=== PATIENT | female | born 1955 | race Caucasian/White ===

== ENCOUNTER 2024-02-24 14:16 | Emergency (ER) | payer OTHER, SELFPAY ==
[2024-02-24 14:17] VITALS: BP 123/51; BMI 39.4
--- NOTE | 2024-02-24 14:50 | ED.GENMED ---
History of Present Illness
General
Chief Complaint: DVT/Possible Blood Clot
Time Seen by Provider: 02/24/24 14:27
History of Present Illness
History of Present Illness:
Patient is a 69-year-old female with a history of DVT on Eliquis who presents with right lower extremity pain. Pain is predominantly around the right knee but she states that shoots down the entire leg. She does have back pain but does not feel
like this is related. Pain is worse with movement. There is no numbness or tingling or weakness there is no new swelling.
Phy Exam
Physical Exam
Physical Exam:
General: No acute distress
Head: NCAT
Neck, Normal in appearance, no swelling
Respiratory: No Respiratory distress, lungs ctab
Abdomen: No distension
Ext: No edema, right leg with pain with range of motion of right knee. There is no joint effusion or erythema. There is no warmth. Straight leg raise is positive on the right strong. pedal pulses sensation intact throughout. 5 strength
throughout.
Neuro: ROSENBERG, AOx4
Psych: Normal affect
Skin: Normal color
Course
Orders/Labs/Results
Orders:
Orders
02/24/24 14:44
Knee, Right 4 or More Views [CR Knee- Right 4 Or More View*] Urgent
Comment:
Reason For Exam: knee pain
US Periph Venous LOWER Ext RT Urgent
Comment:
Reason For Exam: pain, hx of dvt
Vital Signs
Initial and Last Documented VS:
Initial Vital Signs
Temp Pulse Resp BP Pulse Ox
98.1 F 51 18 123/51 95
02/24/24 14:17 02/24/24 14:17 02/24/24 14:17 02/24/24 14:17 02/24/24 14:17
Last Documented Vital Signs
Temp Pulse Resp BP Pulse Ox
98.1 F 71 18 124/98 98
02/24/24 14:17 02/24/24 18:57 02/24/24 18:57 02/24/24 18:57 02/24/24 18:57
*Critical Care Note
Total Time (30-74mins, 75-104mins- exclusive of procedures): Not Applicable
ED Attending Note
ED Attending Note
ED Attending Note:
No fracture seen on prelim x-ray read. Chronic changes consistent with osteoarthritis. Suspect this is the cause of her symptoms. There is no blood clot in the leg. Patient instructed to follow-up with orthopedics for continued management of her
arthritis.
-
Portions of this chart may have been created with voice recognition software.� Occasional wrong word or��sound alike� substitutions may have occurred due to the inherent limitations of voice recognition software.
Discharge Plan
Departure
Patient Disposition: Home (Routine Discharge)
Date of Disposition: 02/24/24
Time of Disposition: 18:39
Patient with high blood pressure during this ER visit?: No
Discharge Problem:
Osteoarthritis
Prescriptions:
New
methylprednisolone [Medrol ([place])] 4 mg tablets,dose pack
See Rx Instructions .ROUTE .COMPLEX Qty: 21 0RF
Rx Instructions:
for 6 days
Referrals:
Samy Kennedy MD [Active] -
Cristopher Ge DO [Family Provider] -
Activity Restrictions/Additional Instructions:
Please follow-up with the orthopedist for outpatient management of your arthritis. There is no blood clot on ultrasound today
Interventions
Interventions:
*Risk Screen - Suicide Last Done: 02/24/24 14:17
*General Assessment Last Done: 02/24/24 14:17
*Neglect/Abuse Screening Last Done: 02/24/24 14:17
ED- Fall Risk Assessment Last Done: 02/24/24 14:17
*ED COVID-19 Vaccine History Last Done: 02/24/24 14:45
*Nursing Disposition Last Done: 02/24/24 18:57
ED- Cardiac Assessment Last Done: 02/24/24 14:17
ED- Pulmonary Assessment Last Done: 02/24/24 14:17
ED-Skin Assessment Last Done: 02/24/24 14:17
Discharge Date and Time
Discharge Date/Time: 02/24/24 18:58
Print Language: POLISH
[2024-02-24 18:57] VITALS: BP 124/98
== END 2024-02-24 18:58 | disposition home or self-care (01) ==
LOC: EMR 14:16
PROVIDERS: EMERGENCY PHYSICIAN Emergency Medicine; FAMILY PHYSICIAN Family Medicine
DX: M17.11 Unilateral primary osteoarthritis, right knee (principal); M79.604 Pain in right leg; M54.9 Dorsalgia, unspecified; Z86.718 Personal history of other venous thrombosis and embolism; Z79.01 Long term (current) use of anticoagulants
CPT/HCPCS: 99284; 73564; 93971